=== PATIENT | female | born 1995 | race African-American/Black ===

== ENCOUNTER 2022-11-05 23:45 | Emergency (ER) | payer OTHER, SELFPAY ==
[2022-11-06] VITALS: BP 104/65; PULSE 60
[2022-11-06 00:10] VITALS: PULSE 55; RESP 16; O2SAT 98
[2022-11-06 00:15] VITALS: BP 104/60; PULSE 60; RESP 19; TEMP 36.8; O2SAT 97; BMI 23.5
[2022-11-06 00:20] VITALS: PULSE 64; RESP 25; O2SAT 99
[2022-11-06] MEDS: ONDANSETRON 4 MG/2 ML INJ IV (00:22)
--- NOTE | 2022-11-06 00:22 | ED.GENADULT ---
HPI - General Adult General Chief complaint: Back Pain/Injury Stated complaint: back cramps Time Seen by Provider: 11/05/22 23:58 Source: patient Mode of arrival: EMS Limitations: no limitations History of Present Illness HPI narrative: Patient is an otherwise healthy 27-year-old female who is brought in by EMS for evaluation of a back spasm. Patient was lifting weights when she suddenly had discomfort in her back. EMS was called. She did receive 100 mcg of fentanyl prior to arrival along with Zofran. She reports no other injuries from the event. By the time I evaluated the patient she stated that she was feeling much better that her discomfort had almost all resolved. Related Data Previous Rx's Medication Instructions Recorded cyclobenzaprine 10 mg tablet 10 mg PO TID PRN muscle spasm #14 11/06/22 tabs Allergies Allergy/AdvReac Type Severity Reaction Status Date / Time No Known Drug Allergies Allergy Verified 10/28/22 14:22 Review of Systems Constitutional Constitutional: Reports system reviewed and no additional complaints, except as documented Musculoskeletal Musculoskeletal: Reports system reviewed and no additional complaints, except as documented Integumentary/Breasts Skin/Breast: Reports system reviewed and no additional complaints, except as documented Neurologic Neurologic: Reports system reviewed and no additional complaints, except as documented Exam Initial Vital Signs Initial Vital Signs: Vital Signs Pulse Rate 60 11/06/22 00:00 Blood Pressure 104/65 11/06/22 00:00 Back/Spine/Pelvis Thoracic/Lumbar Spine: paraspinal tenderness (Left-sided thoracolumbar region), No thoracic spinal tenderness and No lumbar spinal tenderness Skin General: no rashes or lesions noted Extrem General: normal to inspection and capillary refill normal Course Orders Ordered: Discontinued Medications Cyclobenzaprine HCl (Cyclobenzaprine 10 Mg Prepack) 1 bottle MISC SEEINSTR ONE Stop: 11/06/22 00:28 Last Admin: 11/06/22 00:32 Dose: 1 bottle Ondansetron HCl (Ondansetron 4 Mg/2 Ml Inj) 4 mg IV NOW ONE Stop: 11/06/22 00:05 Last Admin: 11/06/22 00:22 Dose: 4 mg Vital Signs Vital signs: Vital Signs - 8 hr 11/06/22 00:15 11/06/22 00:00 11/06/22 00:10 Temperature 98.2 F Pulse Rate 60 60 55 L Respiratory Rate 19 16 Blood Pressure 104/60 104/65 Pulse Oximetry 97 98 Oxygen Delivery Method Room Air Room Air 11/06/22 00:20 Temperature Pulse Rate 64 Respiratory Rate 25 H Blood Pressure Pulse Oximetry 99 Oxygen Delivery Method Medical Decision Making MDM Narrative Medical decision making narrative: Patient did have an obvious fullness to the left-sided thoracolumbar region in the paraspinal muscles which is the obvious cause of her discomfort. Low suspicion for fracture. No indication for radiologic studies. Sent home with muscle relaxers. She was given return precautions. She expressed understanding and agreement. Discharge Plan Departure Patient Disposition: Home Clinical Impression: Muscle spasm of back Instructions: DI for Muscle Spasm Activity Restrictions/Additional Instructions: I recommend that you use the muscle relaxers as needed. I also recommend you use the other conservative measures such as heat and ice and massage as well. Expect to be sore over the next 24 hours. Return to the emergency department for any new symptoms Prescriptions: New cyclobenzaprine 10 mg tablet 10 mg PO TID PRN (Reason: muscle spasm) Qty: 14 0RF Referrals: Dori Winters PA-C [Primary Care Provider] - Stand Alone Forms: Patient Portal/API, Work Release Note
[2022-11-06] MEDS: CYCLOBENZAPRINE 10 MG PREPACK 1 BOTTLE MISC (00:32)
== END 2022-11-06 00:35 | disposition home or self-care (01) ==
PROVIDERS: Emergency Provider Emergency Medicine; PCP Physician Assistant
DX: M62.830 Muscle spasm of back (principal)
CPT/HCPCS: 96374; 99283; 99284; J2405